=== PATIENT | female | born 1975 | race Two or more races ===

== ENCOUNTER → 2017-05-30 | Outpatient (CLI) | payer OTHER ==
--- NOTE | ~2017-05-30 | US5 ---
[facility] A Service of [facility] RADIOLOGY TEXT RESULTS PATIENT: DAKOTA ROBERTS LOCATION: [facility] : 73 UNIT #: [id number] AGE: [address]: MICHELLE MARTINEZ SEX: F ORDER DR: [id number] [facility] [address] [place], [place] [address] [id number] O MR#: [id number] Acc #: [id number] NAME: DAKOTA ROBERTS : 1975 SEX: F STUDY DATE/TIME: 05/30/2017 9:41 UNIT: [facility] ROOM: STUDY DESCRIPTION: US Abdominal Complete Attending Physician: China Weinberg Ordering Physician: China Weinberg Primary Care Physician: Neha Paz M.D. MEDICAL IMAGING REPORT This report is preliminary unless electronic signature is present EXAM Abdominal ultrasound complete, 05/30/2017. HISTORY Abdominal pain for 15 years, worsening in the past 2 years. FINDINGS The liver is homogeneous in echotexture and demonstrates no cystic or solid mass lesions. The intra- and extrahepatic bile ducts are not dilated. The gallbladder is normal with no evidence of cholelithiasis, wall thickening or pericholecystic fluid. The common duct measured 4 mm. The pancreas and spleen are normal. The spleen measures 8.1 cm in greatest diameter. Visualized portions of the abdominal aorta and inferior vena cava are within normal limits. The kidneys are normal bilaterally. IMPRESSION Negative abdominal ultrasound. Dictated by... Jacky Howard M.D. THIS IS AN ELECTRONICALLY VERIFIED REPORT Jacky Howard M.D. at 05/31/2017 7:33 AM DURAN/cynthia TD: 05/30/2017 16:36 JOB #: [id number] MEDICAL IMAGING REPORT Page 1 of 1 COPY
== END | disposition home or self-care (01) ==
LOC: CWCC 09:14
DX: R10.9 Unspecified abdominal pain (principal)
CPT/HCPCS: 76700